=== PATIENT | female | born 1990 | race Caucasian/White ===

== ENCOUNTER → 2020-10-01 | Outpatient (CLI) | payer OTHER ==
[~2020-10-01] MED LIST: IMODIUM CAP 2 MG2 MG PO; PREDNISONE 50 M50 MG PO; PROVENTIL HFA6.7 GM INH; ZOFRAN ODT 4 MG4 MG SL
== END ==
LOC: HEART 5 14:00
DX: G43.109 Migraine with aura, not intractable, without status migrainosus (principal); R56.9 Unspecified convulsions; R55 Syncope and collapse

== ENCOUNTER → 2021-09-04 | Outpatient (CLI) | payer OTHER | LOC: RAD 15:46 | DX: M25.50 Pain in unspecified joint (principal) | CPT/HCPCS: 73562 ==